=== PATIENT | female | born 1950 | race Caucasian/White ===

== ENCOUNTER → 2020-12-19 | Outpatient (CLI) | payer MEDICARE, BC ==
[~2020-12-19] MED LIST: ASPIRIN81 MG PO; ELAVIL 25 MG TA25 MG PO; FENOFIBRATE145 MG PO; KLONOPIN TAB 00.5 MG PO; LEVOTHYROXINE25 MCG PO; LOPRESSOR 50 MG50 MG PO; NABUMETONE750 MG PO; NEURONTIN 400400 MG PO; NORCO 10-325 T1 EACH PO
== END ==
LOC: MAMO 10:30
DX: Z12.31 Encounter for screening mammogram for malignant neoplasm of breast (principal)
CPT/HCPCS: 77063; 77067